=== PATIENT | female | born 1950 | race Caucasian/White ===

== ENCOUNTER 2022-06-22 13:07 | Emergency (ER) | payer MEDICARE, SELFPAY ==
--- NOTE | ~2022-06-22 | XR_ITS ---
XR hand RT min 3V DATE: 06/22/2022 13:33 INDICATION: Injury, medial pain TECHNIQUE: 3 views COMPARISON: None FINDINGS: There is osteoarthritis at the triscaphe and to a lesser extent first carpometacarpal joint . No fracture or dislocation, periosteal reaction or bone destruction. IMPRESSION: No fracture or dislocation Reviewed, dictated and finalized at location A. MOBILE RACER IMPRESSION: No fracture or dislocation
[2022-06-22 13:16] VITALS: BP 141/73; PULSE 111; RESP 20; TEMP 37.2; O2SAT 97
--- NOTE | 2022-06-22 13:22 | ED.UPPEXIN ---
HPI - Extremity Injury (Upper) General Chief Complaint: Extremity Injury, Upper Stated Complaint: Contusion to right hand Time Seen by Provider: 06/22/22 13:22 History of Present Illness HPI narrative: patient presents with right hand injury while blocking a blow from her mentally challenged child. no deformity no swelling slight bruising noted full rom. No other injuries reported. Related Data Home Medications Medication Instructions Recorded Confirmed calcium citrate 315 mg 1 tablet PO DAILY 05/12/19 03/20/22 calcium-vitamin D3 6.25 mcg (250 unit) tablet coenzyme Q10 30 mg capsule (CoQ-10) 30 mg PO DAILY 05/12/19 03/20/22 krill oil 500 mg capsule See Rx Instructions .Route .COMPLEX 05/12/19 03/20/22 choline 250 mg tablet 250 mg PO .QD 08/02/19 03/20/22 magnesium 250 mg tablet 250 mg PO DAILY 08/02/19 03/20/22 turmeric root extract 538 mg 538 mg PO BID 08/02/19 03/20/22 capsule nystatin 100,000 unit/gram topical 1 applic topical BID 03/29/20 03/20/22 cream sitagliptin phosphate 100 mg mg 06/22/22 tablet (Januvia) Allergies Allergy/AdvReac Type Severity Reaction Status Date / Time Sulfa (Sulfonamide Allergy Unknown Unknown Verified 03/20/22 15:02 Antibiotics) SODIUM PENTATHOL Allergy Unknown THROAT Uncoded 03/20/22 15:02 SWELLING Review of Systems Review of Systems: CONSTITUTIONAL: Denies fever, chills, or sweats. EYES: Denies visual changes, redness, or discharge. ENT: Denies rhinorrhea, congestion, sore throat, or otalgia. CARDIOVASCULAR: Denies chest pain, palpitations, or edema. RESPIRATORY: Denies cough or dyspnea. GASTROINTESTINAL: Denies abdominal pain, nausea, vomiting, or diarrhea. GENITOURINARY: Denies dysuria or hematuria. SKIN: Denies rash or itching. MUSCULOSKELETAL: Denies back pain, joint pain, or myalgia. NEUROLOGIC: Denies headache, numbness, or weakness. PSYCHIATRIC: Denies anxiety or depression. [facility] Past Medical History Medical History Anterior basement membrane dystrophy both eyes Degenerative arthritis of knee right knee Depression Diabetes Hypercholesterolemia Hyperlipidemia Hypertension Mitral valve insufficiency Severe carpal tunnel syndrome of both wrists Surgical History Surgical History Hx of arthroscopy of right knee 05/08/2016 Family History Family History Father Hypertension Family history of cardiovascular disease Family history of coronary artery disease Sibling Hypertension Family history of cardiovascular disease Family history of malignant neoplasm of testis Family history of malignant neoplasm of ovary Mother Family history of tremor Other Diabetes mellitus Family history of arthritis Family history of malignant neoplasm Social History Social History (Updated 03/20/22 @ 15:04 by Lori Calabrese [facility]) Smoking status: Never smoker Second hand tobacco smoke exposure: No Alcohol intake: never Substance use: never Substance use type: does not use Lack of Transportation: No Lack of Food: Never True Current Housing: I Have Housing Concerned About Future Housing: No Difficulty Paying Gas/Electric Bills: No Difficulty Paying for Meds: No Currently Unemployed: No Education: Master's Degree or Higher Difficulty w/ Childcare or Family Care: YES Living arrangements: with family Occupation/Education: retired Gender identity (if verbalized by the patient): Female Spiritual care concerns: No Agree to blood products: Yes Comments At time of signature, agree with nursing past medical, surgical, social and family history. There is no relevant family history pertinent to the presenting complaint Exam Narrative: GENERAL: Well-appearing, well-nourished, and in no acute distress. HEAD: Normocephalic, atrauma
== END 2022-06-22 14:00 | disposition home or self-care (01) ==
PROVIDERS: Emergency Provider Nurse Practitioner Family; PCP Family Medicine
DX: S60.221A Contusion of right hand, initial encounter (principal); Y04.2XXA Assault by strike against or bumped into by another person, initial encounter; H18.523 Epithelial (juvenile) corneal dystrophy, bilateral; M17.11 Unilateral primary osteoarthritis, right knee; E11.9 Type 2 diabetes mellitus without complications; E78.00 Pure hypercholesterolemia, unspecified; E78.5 Hyperlipidemia, unspecified; I10 Essential (primary) hypertension; I34.0 Nonrheumatic mitral (valve) insufficiency
CPT/HCPCS: 73130; 99213; G0463

== ENCOUNTER 2022-10-21 17:21 | Emergency (ER) | payer MEDICARE, SELFPAY ==
[2022-10-21 17:28] VITALS: BP 162/57; PULSE 95; RESP 20; TEMP 37.1; O2SAT 96
--- NOTE | 2022-10-21 17:51 | ED.FEMALEGU ---
HPI - Female Genitourinary General Chief complaint: Urogenital-Female Stated complaint: Urinary Problem History of Present Illness HPI Narrative: patient presents with burning with urination , urinary urgency, no gross hematuria no flank pain and no suprapubic pain Related Data Home Medications Medication Instructions Recorded Confirmed calcium citrate 315 mg 1 tablet PO DAILY 05/12/19 10/21/22 calcium-vitamin D3 6.25 mcg (250 unit) tablet choline 250 mg tablet 250 mg PO .QD 08/02/19 10/21/22 turmeric root extract 538 mg 538 mg PO BID 08/02/19 10/21/22 capsule sitagliptin phosphate 100 mg 100 mg PO DAILY 07/24/22 10/21/22 tablet (Januvia) irbesartan 300 mg tablet 300 mg PO DAILY 10/21/22 10/21/22 Allergies Allergy/AdvReac Type Severity Reaction Status Date / Time Sulfa (Sulfonamide Allergy Unknown Unknown Verified 10/21/22 17:28 Antibiotics) SODIUM PENTATHOL Allergy Unknown THROAT Uncoded 10/21/22 17:28 SWELLING Review of Systems Review of Systems: CONSTITUTIONAL: Denies fever, chills, or sweats. EYES: Denies visual changes, redness, or discharge. ENT: Denies rhinorrhea, congestion, sore throat, or otalgia. CARDIOVASCULAR: Denies chest pain, palpitations, or edema. RESPIRATORY: Denies cough or dyspnea. GASTROINTESTINAL: Denies abdominal pain, nausea, vomiting, or diarrhea. GENITOURINARY: Denies dysuria or hematuria. SKIN: Denies rash or itching. MUSCULOSKELETAL: Denies back pain, joint pain, or myalgia. NEUROLOGIC: Denies headache, numbness, or weakness. PSYCHIATRIC: Denies anxiety or depression. [facility] Past Medical History Medical History Anterior basement membrane dystrophy both eyes Degenerative arthritis of knee right knee Depression Diabetes Hypercholesterolemia Hyperlipidemia Hypertension Mitral valve insufficiency Severe carpal tunnel syndrome of both wrists Surgical History Surgical History Hx of arthroscopy of right knee 05/08/2016 Family History Family History Father Hypertension Family history of cardiovascular disease Family history of coronary artery disease Sibling Hypertension Family history of cardiovascular disease Family history of malignant neoplasm of testis Family history of malignant neoplasm of ovary Mother Family history of tremor Other Diabetes mellitus Family history of arthritis Family history of malignant neoplasm Social History Social History Smoking status: Never smoker Second hand tobacco smoke exposure: No Alcohol intake: never Substance use: never Substance use type: does not use Lack of Transportation: No Lack of Food: Never True Current Housing: I Have Housing Concerned About Future Housing: No Difficulty Paying Gas/Electric Bills: No Difficulty Paying for Meds: No Currently Unemployed: No Education: Master's Degree or Higher Difficulty w/ Childcare or Family Care: YES Living arrangements: with family Occupation/Education: retired Gender identity (if verbalized by the patient): Female Spiritual care concerns: No Agree to blood products: Yes Comments At time of signature, agree with nursing past medical, surgical, social and family history. There is no relevant family history pertinent to the presenting complaint Exam Narrative: GENERAL: Well-appearing, well-nourished, and in no acute distress. HEAD: Normocephalic, atraumatic. EYES: PERRLA and EOMI. ENT: Nares clear, no rhinorrhea or epistaxis. Mucous membranes moist. NECK: Supple. CHEST: Clear to auscultation. No respiratory distress. HEART: Regular rate and rhythm. No murmur heard. Normal peripheral pulses. ABDOMEN: Soft, nontender, nondistended, normal active bowel sounds. No flank pain EXTREMIT
== END 2022-10-21 17:59 | disposition home or self-care (01) ==
PROVIDERS: Emergency Provider Nurse Practitioner Family; PCP Family Medicine
DX: N39.0 Urinary tract infection, site not specified (principal); B96.20 Unspecified Escherichia coli [E. coli] as the cause of diseases classified elsewhere; E11.9 Type 2 diabetes mellitus without complications; E78.00 Pure hypercholesterolemia, unspecified; E78.5 Hyperlipidemia, unspecified; I10 Essential (primary) hypertension; I34.0 Nonrheumatic mitral (valve) insufficiency; M17.11 Unilateral primary osteoarthritis, right knee; H18.593 Other hereditary corneal dystrophies, bilateral
CPT/HCPCS: 81003; 87077; 87086; 87186; 99213; G0463

== ENCOUNTER 2023-03-04 08:38 | Outpatient (CLI) | payer MEDICARE, SELFPAY ==
--- NOTE | ~2023-03-04 | XR_ITS ---
EXAMINATION: XR lumbar spine min 4V DATE: 03/04/2023 09:26 INDICATION: Low back pain after fall TECHNIQUE: Anteroposterior, lateral, and bilateral oblique views of the lumbar spine, and cone-down l ateral view of the lumbosacral junction were obtained. COMPARISON: None. FINDINGS: There are 2 mm of anterolisthesis of L4 on L5. The vertebral body heights are maintained. T here is moderate loss of intervertebral disc space height from L2-3 through L5-S1. Small degenerative osteophytes project from the anterior endplates of multiple vertebral bodies. There is moderate face t joint osteoarthritis of the mid and lower lumbar spine. No fracture is identified. There are 10 deg gayle of lumbar levocurvature. IMPRESSION: 1. Moderate lumbar spondylosis without acute findings. Reviewed, dictated and finalized at location L. UNICATION ANALYST
--- NOTE | ~2023-03-04 | XR_ITS ---
AP and lateral views of the right hip Clinical history: Pain Findings: No acute fracture or dislocation is seen. Osseous alignment is anatomic. Right hip joint is preserved. Soft tissues are unremarkable. Impression: No significant abnormality is seen. Reviewed, dictated and finalized at location M. F RADIOLOGIST Impression: No significant abnormality is seen.
--- NOTE | ~2023-03-04 | XR_ITS ---
AP and lateral views of the left hip Clinical history: Pain Findings: No acute fracture or dislocation is seen. Osseous alignment is anatomic. Left hip joint is unremarkable. Soft tissues are unremarkable. Impression: No significant abnormality is seen. Reviewed, dictated and finalized at location M. GRAPHICAL DRAFTER Impression: No significant abnormality is seen.
--- NOTE | ~2023-03-04 | XR_ITS ---
EXAMINATION: XR sacroiliac joints min 3V INDICATION: Low back pain TECHNIQUE: Three views of the sacroiliac joints are obtained. COMPARISON: None available FINDINGS: Bone alignment is normal. There is no fracture. No abnormal erosion or sclerosis of the sac roiliac joints. There is mild osteitis pubis. IMPRESSION: 1. No acute osseous abnormality. Reviewed, dictated and finalized at location L. OGRAMMETRIC COMPILATION SPECIALIST
== END 2023-03-04 08:39 | disposition home or self-care (01) ==
LOC: ANHBWCLAB 08:41 → ANHBWCIMG 08:47
PROVIDERS: PCP Family Medicine; Visit Provider Family Medicine
DX: M43.06 Spondylolysis, lumbar region (principal); M46.1 Sacroiliitis, not elsewhere classified; W19.XXXA Unspecified fall, initial encounter
CPT/HCPCS: 72110; 72202; 73502

== ENCOUNTER 2023-05-22 14:30 | Outpatient (RCR) | payer MEDICARE, SELFPAY ==
--- NOTE | 2023-03-12 15:34 | OPREHPOC ---
Outpatient Therapy Plan of Care This is a Multidisciplinary Plan of Care that may contain components documented by all disciplines (PT, OT, and ST.) PT Problem 1 PT Problem #1 Knowledge Deficit PT Goal 1 Goal 1. Patient will perform independent HEP 2. Patient will verbalize urge suppression strategies. Target Visit 9 PT Problem 2 PT Problem #2 Impaired Strength PT Goal 1 Goal 1. Patient will demo pelvic floor strength 4/5 to decrease incontinence 2. Patient will demo pelvic floor endurance 10 seconds to decrease incontinence Target Visit 9 PT Problem 3 PT Problem #3 Impaired Functional ADLs PT Goal 1 Goal 1. Patient will report no more than 2 instances of incontinence per week and able to do all activities to care for her son 2. Patient will be able to hold urge to void at least 30 minutes to allow her to perform daily tasks Target Visit 9
--- NOTE | 2023-03-12 15:34 | PTOPEVAL1 ---
Assessment and note entered by Jerilyn Irizarry DPT Evaluation Information Assessment Status Evaluation Subjective Information Pt reports a history of urinary incontinence and previous lumbar issues. Reports more recent increased issues with pain and incontinence. She has a son with a physical disability that she cares for and helping him transfer increase her incontinence. Urinates more than 10 times a day and gets up 2-3 times a night. Reports incontinence throughout the day, sometimes small amounts and sometimes more. Denies pain with urination. Can hold urge maybe a minute. BM 3-4 times a day, no incontinence and no pain. Previously no pelvic pain except for due to adhesions that were addressed surgically. Pt has been 5 times, 2 vaginal deliveries. Tearing with her first, otherwise no complications . Total hysterectomy at age 50 due to fibroids. Sometimes has to change clothes and will use pads, will bring extra clothes, pads, wipes, etc when going out in the community. Pt reports she has to continue doing daily activities, going to appointments and do other things to care for her son but builds in extra time if she ever needs to change clothes or get cleaned up. Patient goal: decrease or get rid of the incontinence Reported Pain Level Pain Score 0: Self Report Assessment PT Clinical Summary The patient is presenting to skilled therapy with a history of worsening urinary incontinence and pelvic organ prolapse. She presents with decreased pelvic floor strength and endurance, as well as overall decreased core and LE strength, which are contributing to her frequent incontinence and difficulty performing normal activities including caring for her adult son. She will highly benefit from therapy to address her impairments in order to reduce incontinence and pad use and improve overall function. Plan of Care Interventions Manual Therapy,Neuro Re-education,Patient/ Caregiver Education,Therapeutic Activities, Therapeutic Exercise PT Services Indicated Yes Treatment Frequency and 1 time a week for 8 visits Duration These treatments will address the objective and functional deficits as defined above. The patient will be advanced safely and appropriately in order for th
--- NOTE | 2023-04-17 13:46 | OPREHPOC ---
Outpatient Therapy Plan of Care This is a Multidisciplinary Plan of Care that may contain components documented by all disciplines (PT, OT, and ST.) PT Problem 1 PT Problem #1 Knowledge Deficit PT Goal 1 Goal 1. Patient will perform independent HEP 2. Patient will verbalize urge suppression strategies. Target Visit 9 Progress Partially Met PT Problem 2 PT Problem #2 Impaired Strength PT Goal 1 Goal 1. Patient will demo pelvic floor strength 4/5 to decrease incontinence 2. Patient will demo pelvic floor endurance 10 seconds to decrease incontinence Target Visit 9 Progress Partially Met Comment 1. improved to 3/5 2. met PT Problem 3 PT Problem #3 Impaired Functional ADLs PT Goal 1 Goal 1. Patient will report no more than 2 instances of incontinence per week and able to do all activities to care for her son 2. Patient will be able to hold urge to void at least 30 minutes to allow her to perform daily tasks Target Visit 9 Progress Partially Met
--- NOTE | 2023-04-17 13:46 | PTOPPROG ---
Assessment and note entered by Jerilyn Irizarry DPT Evaluation Information Assessment Status Progress Subjective Information Pt reports some success over the last week, had 3 times where she got up to void in the middle of the night and was able to control bladder until she got to the bathroom. States she is still getting incontinence multiple times a day but smaller amounts at a time. Is wearing pads at all times but had a night recently where she only had to use 1 all night. Assessment PT Clinical Summary The patient has made excellent progress in therapy and reports decreased volume of incontinence and urgency. She demonstrates improved LE, core, and pelvic floor strength and endurance and will highly benefit from continued therapy to further address her daily incontinence and pad use. Plan of Care Interventions Manual Therapy,Neuro Re-education,Patient/ Caregiver Education,Therapeutic Activities, Therapeutic Exercise PT Services Indicated Yes Treatment Frequency and 1 time a week for 5 visits Duration These treatments will address the objective and functional deficits as defined above. The patient will be advanced safely and appropriately in order for the patient to progress towards his/her prior level of function. Additional exercises will be introduced and as well as a comprehensive home exercise program upon discharge, if needed, ?to ensure carryover of functional gains achieved in the clinic. This treatment plan has been reviewed and agreement upon by the patient.
--- NOTE | 2023-05-22 15:03 | PTOPPROG ---
Assessment and note entered by Jerilyn Irizarry DPT Evaluation Information Assessment Status Progress Subjective Information Pt reports she has had more improvements with being able to walk to the bathroom and do kegels on the way to prevent leakage. Incontinence occurs daily but smaller amount of urine at a time. Is able to correlate increased incontinence with drinking tea. Least amount of pads per day is 3, has not leaked through to clothes recently. Assessment PT Clinical Summary The patient has continued to make good progress in therapy. She reports daily incontinence but the volume has significantly decreased and she no longer leaks through her clothes. She continues to require pads daily, 3 at a minimum. She demonstrates improved hip and pelvic floor strength. She will continue to benefit from therapy to further address strength and incontinence in order to return to full function. Plan of Care Interventions Manual Therapy,Neuro Re-education,Patient/ Caregiver Education,Therapeutic Activities, Therapeutic Exercise PT Services Indicated Yes Treatment Frequency and 1 visit every other week x 4 visits Duration These treatments will address the objective and functional deficits as defined above. The patient will be advanced safely and appropriately in order for the patient to progress towards his/her prior level of function. Additional exercises will be introduced and as well as a comprehensive home exercise program upon discharge, if needed, ?to ensure carryover of functional gains achieved in the clinic. This treatment plan has been reviewed and agreement upon by the patient.
--- NOTE | 2023-05-22 15:04 | OPREHPOC ---
Outpatient Therapy Plan of Care This is a Multidisciplinary Plan of Care that may contain components documented by all disciplines (PT, OT, and ST.) PT Problem 1 PT Problem #1 Knowledge Deficit PT Goal 1 Goal 1. Patient will perform independent HEP 2. Patient will verbalize urge suppression strategies. Target Visit 13 Progress Partially Met PT Problem 2 PT Problem #2 Impaired Strength PT Goal 1 Goal 1. Patient will demo pelvic floor strength 4/5 to decrease incontinence 2. Patient will demo pelvic floor endurance 10 seconds to decrease incontinence Target Visit 9 Progress Met PT Problem 3 PT Problem #3 Impaired Functional ADLs PT Goal 1 Goal 1. Patient will report no more than 2 instances of incontinence per week and able to do all activities to care for her son 2. Patient will be able to hold urge to void at least 30 minutes to allow her to perform daily tasks Target Visit 13 Progress Partially Met
--- NOTE | 2023-05-27 14:05 | PCPTNOTE ---
This treatment is being continued on visit number [id number]. Please see documentation on both accounts to view progress. Completed interventions, outcomes, and problems have been marked as Inactive to facilitate the copying of the Care plan routine for recurring accounts.
== END 2023-05-26 10:25 | disposition home or self-care (01) ==
LOC: ANHPT 14:30
PROVIDERS: PCP Family Medicine; Visit Provider Family Medicine
DX: R32 Unspecified urinary incontinence (principal); N81.89 Other female genital prolapse
CPT/HCPCS: 97112; 97161; 97530

== ENCOUNTER 2023-07-17 13:00 | Outpatient (RCR) | payer MEDICARE, SELFPAY ==
--- NOTE | 2023-05-27 14:07 | PCPTNOTE ---
The treatment documented on this account is a continuation of the treatment documented on visit number [id number]. Please see documentation on both accounts to view progress. The Plan of Care has been transitioned and updated within the new V#. I have addressed and agree with the discipline specific Problems, Interventions, and Goals for the current certification period. Completed interventions, outcomes, and problems have been marked as Inactive to facilitate the copying of the Care plan routine for recurring accounts.
--- NOTE | 2023-05-27 14:08 | OPREHPOC ---
Outpatient Therapy Plan of Care This is a Multidisciplinary Plan of Care that may contain components documented by all disciplines (PT, OT, and ST.) PT Problem 1 PT Problem #1 Knowledge Deficit PT Goal 1 Goal 1. Patient will perform independent HEP 2. Patient will verbalize urge suppression strategies. Target Visit 13 Progress Partially Met PT Problem 2 PT Problem #2 Impaired Strength PT Goal 1 Goal 1. Patient will demo pelvic floor strength 4/5 to decrease incontinence 2. Patient will demo pelvic floor endurance 10 seconds to decrease incontinence Target Visit 9 Progress Met Comment 1. improved to 3/5 2. met PT Problem 3 PT Problem #3 Impaired Functional ADLs PT Goal 1 Goal 1. Patient will report no more than 2 instances of incontinence per week and able to do all activities to care for her son 2. Patient will be able to hold urge to void at least 30 minutes to allow her to perform daily tasks Target Visit 13 Progress Partially Met
--- NOTE | 2023-07-17 13:56 | OPREHPOC ---
Outpatient Therapy Plan of Care This is a Multidisciplinary Plan of Care that may contain components documented by all disciplines (PT, OT, and ST.) PT Problem 1 PT Problem #1 Knowledge Deficit PT Goal 1 Goal 1. Patient will perform independent HEP 2. Patient will verbalize urge suppression strategies. Target Visit 13 Progress Met PT Problem 2 PT Problem #2 Impaired Strength PT Goal 1 Goal 1. Patient will demo pelvic floor strength 4/5 to decrease incontinence 2. Patient will demo pelvic floor endurance 10 seconds to decrease incontinence Target Visit 9 Progress Met PT Problem 3 PT Problem #3 Impaired Functional ADLs PT Goal 1 Goal 1. Patient will report no more than 2 instances of incontinence per week and able to do all activities to care for her son 2. Patient will be able to hold urge to void at least 30 minutes to allow her to perform daily tasks Target Visit 13 Progress Partially Met
--- NOTE | 2023-07-17 13:57 | PTOPDC ---
Assessment and note entered by Jerilyn Irizarry DPT Evaluation Information Assessment Status Discharge Subjective Information Pt reports two weeks ago incontinence was better than over the last week. The last week her back has been bothering her more and it has been more stressful caring for her son. Daily incontinence still and is multiple times a day. Was able to go down a size of pads temporarily but may go back up this week as it is seeming worse. Still reports that she has days without surges of urine so she is able to get out in the community and grocery shop more. Reported Pain Level Pain Score 0: Self Report Assessment PT Clinical Summary The patient has reached a plateau in progress at this time. Overall she reports decreased volume of incontinence, but displays no objective pelvic floor improvement compared to the last reassessment. She has been educated to continue her HEP and to follow up with MD and/or PT as needed. Plan of Care PT Services Indicated No
== END 2023-07-17 14:36 | disposition home or self-care (01) ==
LOC: ANHPT 13:00
PROVIDERS: PCP Family Medicine; Visit Provider Family Medicine
DX: R32 Unspecified urinary incontinence (principal); N81.89 Other female genital prolapse
CPT/HCPCS: 97112; 97530; 99199

== ENCOUNTER 2023-11-17 13:08 | Outpatient (CLI) | payer MEDICARE, SELFPAY ==
[2023-11-17 14:14] LABS: Influenza A QL RT-PCR Negative (Negative); Influenza B QL RT-PCR Negative (Negative); RSV RNA, RT-PCR Negative (Negative); SARS-CoV-2 RNA PCR Positive (Negative)
== END 2023-11-17 13:09 | disposition home or self-care (01) ==
LOC: ANHLAB 13:09
PROVIDERS: PCP Family Medicine; Visit Provider Family Medicine
DX: J06.9 Acute upper respiratory infection, unspecified (principal); Z20.822 Contact with and (suspected) exposure to COVID-19
CPT/HCPCS: 87637

== ENCOUNTER 2024-01-02 12:46 | Outpatient (CLI) | payer MEDICARE, SELFPAY ==
--- NOTE | ~2024-01-02 | MM_ITS ---
EXAMINATION: MM screening robert BI w kemal HISTORY: Screening TECHNIQUE: Craniocaudal and mediolateral oblique 3-D tomosynthesis images were obtained and synthetic 2-D images were generated. CAD analysis was submitted and interpreted. COMPARISON: Comparison to multiple prior studies sequentially, with oldest reviewed study dated 11/2014. BREAST PARENCHYMAL COMPOSITION: Not dense: There are scattered areas of fibroglandular density. FINDINGS: There is no evidence of suspicious mass, calcification, or architectural distortion to sugg est malignancy in either breast. There has been no suspicious interval change. IMPRESSION: 1. No mammographic evidence of malignancy. 2. Recommend routine screening mammography in one year. BI-RADS Category 1: Negative Reviewed, dictated and finalized at location B.
--- NOTE | ~2024-01-02 | DEXA_ITS ---
Bone Density Report Name: CHRISSY LEUNG Age: 73 Sex: Female Ethnicity: White Date of : 1950 Indication: postmenopausal; screening for osteoporosis; parental hip fracture; hysterectomy; Referring Provider: Lina Carlisle Study: Bone densitometry was performed. Exam Date: January 02, 2024 Accession number: [id number] Bone Density: Region BMD T-score Z-score Classification AP Spine(L1, L2, L3) 1.028 0.1 2.3 Normal Femoral Neck (Left) 0.600 -2.2 -0.3 Osteopenia Total Hip (Left) 0.878 -0.5 1.2 Normal Femoral Neck (Right) 0.584 -2.4 -0.4 Osteopenia Total Hip (Right) 0.802 -1.1 0.5 Osteopenia Femoral Neck Mean 0.592 -2.3 -0.3 Osteopenia Total Hip Mean 0.840 -0.8 0.8 Normal World Health Organization criteria for BMD impression classify patients as: Normal (T-score at or above -1.0), Osteopenia (T-score between -1.0 and -2.5), or Osteoporosis (T-score at or below -2.5). 10-year Fracture Risk(1): Major Osteoporotic Fracture 23% Hip Fracture 11% Reported Risk Factors: [place] (), Neck BMD=0.584, BMI=34.9, parental fracture (1) FRAX(R) Version 3.08. Fracture probability calculated for an untreated patient. Fracture probability may be lower if the patient has received treatment. Clinical Information Provided by Patient: Parent has had a hip fracture Has used the following medications: Vitamin D, Calcium Has the following medical conditions: Hysterectomy Patient maximum height was 61 Menopause Age: 50 No regular weight bearing exercise Onset of menses at age 13 Number of children 2 Impression: The patient has low bone mass, based on the Right Femoral Neck T-score. The patient has risk factors, including: parental hip fracture. Discussion: BONE DENSITY IS LOW AT ONE OR MORE SKELETAL SITES. This patient's lowest T-score is low at one or more skeletal sites. It meets the World Health Organization's (WHO) criteria for ?low bone mass? (T-score between -1.0 and -2.5). The patient's 10-year risk of fracture as calculated by FRAX is less than the threshold where pharmacological therapy is recommended by the National Osteoporosis Foundation (NOF). However, all treatment decisions require clinical judgment and consideration of individual patient factors, including patient preferences, comorbidities, previous drug use, risk factors not captured in the FRAX model (e.g., frailty, falls, vitamin D deficiency, increased bone turnover, interval significant decline in bone density) and possible under or overestimation of fracture risk by FRAX. The patient should follow a healthful lifestyle (good nutrition with adequate calcium and vitamin D, and appropriate weight-bearing exercise). Follow-Up: Consider repeating this study in 2 to 3 years to reassess this patient's status
== END 2024-01-02 12:47 | disposition home or self-care (01) ==
LOC: CHSIMG 12:49
PROVIDERS: PCP Family Medicine; Visit Provider Family Medicine
DX: Z78.0 Asymptomatic menopausal state (principal); Z12.31 Encounter for screening mammogram for malignant neoplasm of breast; M85.89 Other specified disorders of bone density and structure, multiple sites
CPT/HCPCS: 77063; 77067; 77080

== ENCOUNTER 2024-01-29 06:16 | Day surgery (SDC) | payer MEDICARE, SELFPAY ==
[2024-01-01 09:32] VITALS: BMI 36.5
[2024-01-19 11:34] VITALS: BMI 35.3
--- NOTE | 2024-01-28 16:10 | WPDANESEPPF ---
Anes - Initial Pre Proc Eval Procedure: Operation Date: 01/29/24 08:00 Proposed Procedures p Diagnostic Colonoscopy - Swapnil Ace MD Date/Time: 01/28/24 16:10 Surgeon: Swapnil Ace MD Pre Op Diagnosis: Personal HX of Colonic Polyps Patient Data Age: 73 Gender: F Height: 1.52 m Weight: 82 kg Allergies Allergy/AdvReac Type Severity Reaction Status Date / Time Sulfa (Sulfonamide Allergy Unknown Swelling Verified 01/29/24 06:47 Antibiotics) of Lip/Tongue/Throat SODIUM [place] Allergy Unknown THROAT Uncoded 01/29/24 06:47 SWELLING Home Medications Medication Instructions Recorded Confirmed Type calcium 315 mg (as 1 tablet PO DAILY 05/12/19 01/29/24 History citrate)-vitamin D3 6.25 mcg (250 unit) tablet turmeric root extract 538 mg 538 mg PO BID 08/02/19 01/19/24 History capsule dapagliflozin propanediol 10 mg 10 mg PO DAILY #90 tabs 01/21/22 01/29/24 Rx tablet (Farxiga) bupropion HCl 150 mg tablet,12 hr 300 mg PO DAILY #180 tabs 12/19/22 01/29/24 Rx sustained-release cholestyramine-aspartame 4 gram See Rx Instructions .Route 02/17/23 01/29/24 Rx oral powder for susp in a packet .COMPLEX #90 ea (Cholestyramine Light) pen needle, diabetic 32 gauge x #100 ea 04/07/23 01/08/24 Rx 5/32 (BD Ofe 2nd Gen Pen Needle) glimepiride 4 mg tablet 4 mg PO BID #180 tabs 08/03/23 01/29/24 Rx buspirone 10 mg tablet 10 mg PO TID #270 tabs 09/01/23 01/29/24 Rx simvastatin 20 mg tablet 20 mg PO DAILY #90 tabs 12/03/23 01/29/24 Rx Ultra CoQ10 1 tab-cap PO DAILY 01/19/24 01/19/24 History duloxetine 30 mg capsule,delayed 60 mg PO DAILY 01/19/24 01/29/24 History release insulin glargine 100 unit/mL (3 45 unit subcut QPM 01/19/24 01/29/24 History mL) subcutaneous pen (Lantus Solostar U-100 Insulin) irbesartan 300 mg tablet 150 mg PO DAILY #90 tabs 01/20/24 01/29/24 Rx semaglutide 0.25 mg or 0.5 mg (2 0.25 mg (0.368 mL) subcut WEEKLY 01/28/24 01/29/24 Rx mg/3 mL) subcutaneous pen injector #3 mL (Ozempic) Patient hx anesthesia problems: none Family hx anesthesia problems: none Results Review: All pre-operative results and documents have been reviewed as part of the pre-operative evaluation. [facility] Past Medical History Medical History (Updated 01/29/24 @ 07:07 by Swapnil Ace MD) Ankylosing spondylitis Anterior basement membrane dystrophy both eyes Degenerative arthritis of knee right knee Depression Diabetes Hypercholesterolemia Hyperlipidemia Hyperlipidemia associated with type 2 diabetes mellitus Hypertension Mitral valve insufficiency Severe carpal tunnel syndrome of both wrists Skin cancer Surgical History Surgical History (Updated 01/08/24 @ 10:07 by Ki Jesus MD) Hx of arthroscopy of right knee 05/08/2016 Family History Family History Father Hypertension Family history of cardiovascular disease Family history of coronary artery disease Sibling Hypertension Family history of cardiovascular disease Family history of malignant neoplasm of testis Family history of malignant neoplasm of ovary Mother Family history of tremor Other Diabetes mellitus Family history of arthritis Family history of malignant neoplasm Social History Social History (Updated 01/08/24 @ 09:49 by LOPEZ Aguilar) Smoking status: Never smoker Second hand tobacco smoke exposure: No Alcohol intake: never Substance use: never Substance use type: does not use Do You Feel Safe in your Home?: Yes Lack of Transportation: No Lack of Food: Never True Current Housing: I Have Housing Concerned About Future Housing: No Difficulty Paying Gas/Electric Bills: No Difficulty Paying for Meds: No Currently Unemployed: No Education: Master's Degree or Higher Difficulty w/ Childcare or Family Care: YES Living arrangements: with family Occupation/Education:
[2024-01-29 06:55] VITALS: BP 152/69; PULSE 71; RESP 18; TEMP 29.8; O2SAT 100; BMI 36.8
--- NOTE | 2024-01-29 07:05 | PM.HPGS ---
History of Present Illness History of Present Illness Consent: Risks, benefits, and alternatives have been discussed and questions answered. Patient agrees to proceed with procedure. Chief complaint: Personal HX of Colonic Polyps Narrative: Yamilex Wilkerson is a 73 year old female presents for colonoscopy. Patient states that her current weight appetite and bowel movements are normal. Patient denies abdominal pain. She has had no bleeding. Family history noncontributory. Patient had a colonoscopy 5 years ago. At that time hyperplastic colon polyp was removed from the colon. Review of Systems Review of Systems: All systems reviewed & are unremarkable except as noted in HPI and below PMFSH Past Medical History Medical History (Updated 01/29/24 @ 07:07 by Swapnil Ace MD) Ankylosing spondylitis Anterior basement membrane dystrophy both eyes Degenerative arthritis of knee right knee Depression Diabetes Hypercholesterolemia Hyperlipidemia Hyperlipidemia associated with type 2 diabetes mellitus Hypertension Mitral valve insufficiency Severe carpal tunnel syndrome of both wrists Skin cancer Surgical History Surgical History (Updated 01/08/24 @ 10:07 by Ki Jesus MD) Hx of arthroscopy of right knee 05/08/2016 Family History Family History Father Hypertension Family history of cardiovascular disease Family history of coronary artery disease Sibling Hypertension Family history of cardiovascular disease Family history of malignant neoplasm of testis Family history of malignant neoplasm of ovary Mother Family history of tremor Other Diabetes mellitus Family history of arthritis Family history of malignant neoplasm Social History Social History (Updated 01/08/24 @ 09:49 by LOPEZ Aguilar) Smoking status: Never smoker Second hand tobacco smoke exposure: No Alcohol intake: never Substance use: never Substance use type: does not use Do You Feel Safe in your Home?: Yes Lack of Transportation: No Lack of Food: Never True Current Housing: I Have Housing Concerned About Future Housing: No Difficulty Paying Gas/Electric Bills: No Difficulty Paying for Meds: No Currently Unemployed: No Education: Master's Degree or Higher Difficulty w/ Childcare or Family Care: YES Living arrangements: with family Occupation/Education: retired Additional occupation/education comments: Special [employer] Gender identity (if verbalized by the patient): Female Spiritual care concerns: No Agree to blood products: Yes Meds Home Medications and Allergies Home Medications Medication Instructions Recorded Confirmed Type calcium 315 mg (as 1 tablet PO DAILY 05/12/19 01/29/24 History citrate)-vitamin D3 6.25 mcg (250 unit) tablet turmeric root extract 538 mg 538 mg PO BID 08/02/19 01/19/24 History capsule dapagliflozin propanediol 10 mg 10 mg PO DAILY #90 tabs 01/21/22 01/29/24 Rx tablet (Farxiga) bupropion HCl 150 mg tablet,12 hr 300 mg PO DAILY #180 tabs 12/19/22 01/29/24 Rx sustained-release cholestyramine-aspartame 4 gram See Rx Instructions .Route 02/17/23 01/29/24 Rx oral powder for susp in a packet .COMPLEX #90 ea (Cholestyramine Light) pen needle, diabetic 32 gauge x #100 ea 04/07/23 01/08/24 Rx (BD Ofe 2nd Gen Pen Needle) glimepiride 4 mg tablet 4 mg PO BID #180 tabs 08/03/23 01/29/24 Rx buspirone 10 mg tablet 10 mg PO TID #270 tabs 09/01/23 01/29/24 Rx simvastatin 20 mg tablet 20 mg PO DAILY #90 tabs 12/03/23 01/29/24 Rx Ultra CoQ10 1 tab-cap PO DAILY 01/19/24 01/19/24 History duloxetine 30 mg capsule,delayed 60 mg PO DAILY 01/19/24 01/29/24 History release insulin glargine 100 unit/mL (3 45 unit subcut QPM 01/19/24 01/29/24 History mL) subcutaneous pen (Lantus Solostar U-100 Insulin) irbesartan 300 mg tablet 150 mg PO DAILY #90 tabs
[2024-01-29 07:17] LABS: Glucose Point of Care 66 mg/dl (65-105)
[2024-01-29] MEDS: LACTATED RINGERS 1,000 ML 150 ML IV CONT (07:22)
--- NOTE | 2024-01-29 07:22 | SUR.PREOP ---
PT BLOOD SUGAR IS 66. PT ASYMPTOMATIC. DR MALDONADO NOTIFIED. IF PT BECOMES SYMPTOMATIC, MAY GIVEN 1/2 AMP D50. PT INSTRUCTED TO LET NURSE KNOW IF SHE DOESN'T FEEL WELL. PT VERBALIZED UNDERSTANDING.
[2024-01-29 08:16] VITALS: BP 108/62; PULSE 67; RESP 18; O2SAT 99
[2024-01-29 08:26] VITALS: BP 105/85; PULSE 96; RESP 18; O2SAT 99
[2024-01-29 08:36] VITALS: BP 136/59; PULSE 62; RESP 18; O2SAT 100
[2024-01-29] MEDS: DEXTROSE 50% 25 GM/50 ML SYRINGE IV PUSH (08:48)
[2024-01-29 08:50] LABS: Glucose Point of Care 54 mg/dl (65-105)
[2024-01-29 08:50] LABS: Glucose Point of Care 57 mg/dl (65-105)
--- NOTE | 2024-01-29 09:00 | SUR.PHASEII ---
Pts FSBS prior to procedure was 66. Pt was asymptomatic. Post procedure, once pt was awake, pt drank an apple juice. FSBS was 57. Pt was aymptomatic. Pt drank a second apple juice. FSBS was 54. Pt remained asymptomatic. Administered 1/2amp D50 IV push. FSBS 95. Pt remained asymptomatic. Dr. Posada made aware.
[2024-01-29 09:16] LABS: Glucose Point of Care 95 mg/dl (65-105)
--- NOTE | 2024-01-29 12:02 | WPDANESPN ---
Anes - Prog Note Post-Op Date/Time: 01/29/24 12:02 Cardiovascular status: normal Respiratory status: normal Airway patency: baseline Mental status: baseline Post-Op hydration status: normal Vital Signs: Last Vital Signs Temp 29.8 C L 01/29/24 06:55 Pulse 62 01/29/24 08:36 Resp 18 01/29/24 08:36 BP 136/59 L 01/29/24 08:36 Pulse Ox 100 01/29/24 08:36 O2 Del Method Room Air 01/29/24 08:36 Pain Score (VAS): 0 I/O: Intake & Output 01/28/24 01/29/24 01/29/24 23:59 07:59 15:59 Intake Total 500 Balance 500 01/29/24 01/29/24 01/29/24 07:12 08:32 08:44 POC Capillary Glucose 66 57 L* 54 L* 01/29/24 08:58 POC Capillary Glucose 95 Post-procedural complaints: none Patient Feedback: Patient satisfied with anesthetic care. Other Findings: Patient vital signs back to baseline. Patient denies nausea and vomiting. Patient's pain under control. Patient OK for discharge.
== END 2024-01-29 09:13 | disposition home or self-care (01) ==
PROVIDERS: PCP Family Medicine; Visit Provider Internal Medicine Gastroenterology
PROC: 0DJD8ZZ Inspection of Lower Intestinal Tract, Via Natural or Artificial Opening Endoscopic (ICD-10-PCS; CPT 45378; principal; 2024-01-29 08:00)
DX: Z12.11 Encounter for screening for malignant neoplasm of colon (principal); K57.30 Diverticulosis of large intestine without perforation or abscess without bleeding
CPT/HCPCS: 45378

== ENCOUNTER 2024-05-17 10:34 | Outpatient (CLI) | payer MEDICARE, SELFPAY ==
--- NOTE | ~2024-05-17 | MR_ITS ---
MRI of the lumbar spine Clinical History: Back pain Technique: Axial T2-weighted images, and sagittal T1-weighted, T2-weighted, and T2 fat-sat images wer e acquired. Findings: No acute fracture or subluxation identified. Intraosseous hemangioma at L3 noted. There are mild reactive marrow changes at the lower lumbar spine. At L1-L2, there is no disc bulge or herniation. There is moderate to advanced facet arthropathy. No c entral canal stenosis. There is minimal bilateral neural foraminal narrowing. At L2-L3, there is moderate to advanced degenerative disc narrowing. There is diffuse disc bulge with moderate facet arthropathy. There is mild to moderate central canal stenosis. There is moderate bila teral neural foraminal narrowing. At L3-L4, there is advanced degenerative disc narrowing. There is diffuse disc bulge and severe facet arthropathy and moderate to severe spinal canal stenosis/thecal sac compression. There is severe rig ht neural foraminal narrowing, and moderate to advanced left neural foraminal narrowing. At L4-L5, there is diffuse disc bulge and severe facet arthropathy, resulting in severe spinal canal stenosis/thecal sac compression. There is severe right neural foraminal narrowing, and mild to modera te left neural foraminal narrowing. At L5-S1, there is central disc extrusion superimposed upon diffuse disc bulge, with moderate facet a rthropathy. No britta central canal stenosis. There is moderate to advanced left neural foraminal narr owing, and mild right neural foraminal narrowing. Paravertebral soft tissues are unremarkable. Impression: Severe degenerative spondylitic changes, as above. Reviewed, dictated and finalized at [facility] M. ER PITMAN Impression: Severe degenerative spondylitic changes, as above.
== END 2024-05-17 10:35 | disposition home or self-care (01) ==
LOC: GOSHIMG 10:34
PROVIDERS: PCP Orthopaedic Surgery; Visit Provider Family Medicine
DX: M47.896 Other spondylosis, lumbar region (principal)
CPT/HCPCS: 72148

== ENCOUNTER 2025-03-23 12:52 | Outpatient (CLI) | payer MEDICARE, SELFPAY ==
--- NOTE | 2025-03-23 13:00 | NEURO_ITS ---
Impression: # Diabetic, complains of numbness of hands. ? # Bilateral Carpal Tunnel Syndrome. ? # Bilateral Ulnar Neuropathy around the elbow. ? # Needle/EMG exam mildly abnormal. Nerve Conduction Studies ?Stim Site NR Peak (ms) P-T Amp (?V) Site1 Site2 Delta-P (ms) Dist (cm) Piter (m/s) Left Median Anti Sensory (2-3nd Digit)??? NO RESPONSE Wrist NR Wrist 2-3nd Digit 14.0 Wrist NR Wrist 2-3nd Digit 14.0 Right Median Anti Sensory (2-3nd Digit) Wrist ? 6.3 11.0 Wrist 2-3nd Digit 6.3 14.0 22 Wrist ? 6.6 10.8 Wrist 2-3nd Digit 6.3 14.0 22 Left Radial Anti Sensory (Base 1st Digit) Wrist ? 1.8 21.6 Wrist Base 1st Digit 1.8 0.0 Right Radial Anti Sensory (Base 1st Digit) Wrist ? 2.1 20.2 Wrist Base 1st Digit 2.1 0.0 Left Ulnar Anti Sensory (5th Digit) Wrist ? 3.0 40.3 Wrist 5th Digit 3.0 14.0 47 Right Ulnar Anti Sensory (5th Digit) Wrist ? 3.0 40.0 Wrist 5th Digit 3.0 14.0 47 ?Stim Site NR Onset (ms) O-P Amp (mV) Site1 Site2 Delta-0 (ms) Dist (cm) Piter (m/s) Left Median Motor (Abd Poll Brev) Wrist ? 5.0 0.6 Elbow Wrist 4.4 25.0 57 Elbow ? 9.4 0.9 Right Median Motor (Abd Poll Brev) Wrist ? 5.5 1.7 Elbow Wrist 5.0 26.0 52 Elbow ? 10.5 1.6 Left Ulnar Motor (Abd Dig Minimi) Wrist ? 2.5 11.8 A Elbow Wrist 5.5 26.0 47 A Elbow ? 8.0 9.1 B Elbow Wrist 3.8 19.0 50 B Elbow ? 6.3 6.1 Right Ulnar Motor (Abd Dig Minimi) Wrist ? 2.0 8.7 A Elbow Wrist 5.7 26.0 46 A Elbow ? 7.7 6.8 B Elbow Wrist 4.1 18.0 44 B Elbow ? 6.1 4.7 F Wave Studies ?NR F-Lat (ms) L-R F-Lat (ms) Left Median (Mrkrs) (Abd Poll Brev) ? 35.17 1.37 Right Median (Mrkrs) (Abd Poll Brev) ? 33.80 1.37 Left Ulnar (Mrkrs) (Abd Dig Min) ? 27.89 0.55 Right Ulnar (Mrkrs) (Abd Dig Min) ? 28.44 0.55 Electromyography ?Side Muscle Nerve Root Ins Act Fibs Amp Dur Recrt Comment Left 1stDorInt Ulnar C8-T1 Nml Nml Nml >12ms +1 Right 1stDorInt Ulnar C8-T1 Nml Nml Nml >12ms +2 Left ABD Dig Min Ulnar C8-T1 Nml Nml Nml >12ms +1 Right ABD Dig Min Ulnar C8-T1 Nml Nml Nml >12ms +2 Left Abd Poll Brev Median C8-T1 Nml Nml Nml >12ms +2 Right Abd Poll Brev Median C8-T1 Nml Nml Nml >12ms +2 Left Abd Poll Long Radial (Post Int) C7-8 Nml Nml Nml Nml Nml Right Abd Poll Long Radial (Post Int) C7-8 Nml Nml Nml Nml Nml Left BrachioRad Radial C5-6 Nml Nml Nml Nml Nml Right BrachioRad Radial C5-6 Nml Nml Nml Nml Nml Left Ext Digitorum Radial (Post Int) C7-8 Nml Nml Nml Nml Nml Right Ext Digitorum Radial (Post Int) C7-8 Nml Nml Nml Nml Nml Left Ext Indicis Radial (Post Int) C7-8 Nml Nml Nml Nml Nml Right Ext Indicis Radial (Post Int) C7-8 Nml Nml Nml Nml Nml Left FlexPolLong Median (Ant Int) C7-8 Nml Nml Nml Nml Nml Right FlexPolLong Median (Ant Int) C7-8 Nml Nml Nml Nml Nml Left PronatorTeres Median C6-7 Nml Nml Nml Nml Nml Right PronatorTeres Median C6-7 Nml Nml Nml Nml Nml
--- OUTSIDE RECORDS SUMMARY | 2025-03-23 13:03 | XMS_ITS | Clinical Summary ---
Author Organization [facility] Address [facility] [place] [address] Care Team Providers Care Cement Finisher Helper Name Role Phone Ryan Kelly Primary Care Provider [phone] Allergies Active Allergy Reactions Criticality Noted Date Comments Thiopental Sodium Swelling Medium 09/06/2020 Sulfa (Sulfonamide Antibiotics) Hives Medium 08/26 Medications buPROPion SR (WELLBUTRIN SR) 150 mg 12 hr tablet Take 100 mg by mouth daily 1 Active dapagliflozin (Farxiga) 10 mg tablet Farxiga 10 mg tablet TK 1 T PO D Active glimepiride (AMARYL) 2 mg tablet glimepiride 2 mg tablet Active irbesartan (AVAPRO) 300 mg tablet irbesartan 300 mg tablet Active ketoconazole (NIZORAL) 2 % shampoo ketoconazole 2 % shampoo FRANK SHAMPOO AA QOD Active nystatin ointment nystatin 100,000 unit/gram topical ointment Active metFORMIN (GLUCOPHAGE) 500 mg tablet Take 500 mg by mouth 4 (four) times a day 1 Active simvastatin (ZOCOR) 10 mg tablet simvastatin 10 mg tablet Active SITagliptin (Januvia) 100 mg tablet Januvia 100 mg tablet Active Active Problems No known active problems Surgical History Surgery Date Site/Laterality Comments TONSILLECTOMY/ADENOIDECTOMY HYSTERECTOMY TUBAL LIGATION Medical History Medical History Date Comments High cholesterol Diabetes Depression Mitral valve disease Family History Medical History Relation Name Comments Testicular cancer Brother 2 Heart attack Brother 3 Hypertension Brother 3 Alzheimer's disease Father Heart failure Father Hypertension Father Hypotension Mother Macular degeneration Mother diabetes Mother No Known Problems Sister 1 No Known Problems Sister 2 Ovarian cancer Sister 3 No Known Problems Sister 5 No Known Problems Sister 6 Relation Name Status Comments Brother 1 Alive Brother 2 Alive Brother 3 Alive Father Mother Alive Sister 1 Alive Sister 2 Alive Sister 3 Alive Sister 4 Alive Sister 5 Alive Sister 6 Alive Sister 7 Social History Tobacco Use Types Packs/Day Years Used Date Smoking Tobacco: Never Smokeless Tobacco: Never Personal Safety Answer Date Recorded Getting School Help Needed Not on file 04/23 Comments Unknown Sex and Gender Information Value Date Recorded Sex Assigned at Not on file Legal Sex Female 10:08 PM MORTAR MAN Gender Identity Female 03/30/2024 9:42 AM MORTAR MAN Sexual Orientation Choose not to disclose 2023 9:42 AM MORTAR MAN 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 Not on file Not on file No t on file Last Filed Vital Signs Vital Sign Reading Time Taken Comments Blood Pressure 138/82 09/06/2020 1:24 PM CDT Pulse 92 09/06/2020 1:24 PM CDT Temperature 36.9 C (98.4 F) 09/06/2020 1:24 PM CDT Respiratory Rate - - Oxygen Saturation - - Inhaled Oxygen Concentration - - Weight 81.6 kg (180 lb) 12/14/2020 12:32 PM CDT Height 152.4 cm (5') 12/14/2020 12:32 PM CDT Body Mass Index 35.15 12/14/2020 12:32 PM CDT Plan of Treatment Health Maintenance Due Date Last Done Comments Breast Cancer Screening-Mammogram 1950 Colon Cancer Screening-Colonoscopy 1950 Depression Screening 1950 Fall Risk Assessment 1950 Hepatitis C Screening 1950 Osteoporosis Screening-Bone Density Scan 1950 Hepatitis B Screening 1968 Zoster Vaccine (1 of 2) 2000 Well Visit 65+ 10/16/2015 Pneumococcal vaccine 65+ (2 of 2 - PCV) 01/25/2017 0 01/26/2016 Influenza Vaccine (#1) 2024 02/08/2020, 2017 DTaP/Tdap/Td Vaccine (3 - Td or Tdap) 03/29/203005/2019, 04/04/2009 Insurance MEDICARE MEDICARE Care Teams Cement Finisher Helper Relationship Specialty Start Date End Date Ryan Kelly PA [address] [place] [address] PCP - General Physician Spool Salvager 08/04/20
== END 2025-03-23 12:53 | disposition home or self-care (01) ==
LOC: ANHNEURO 12:54
PROVIDERS: Visit Provider Student in an Organized Health Care Education/Training Program
DX: G56.03 Carpal tunnel syndrome, bilateral upper limbs (principal); G56.23 Lesion of ulnar nerve, bilateral upper limbs; E11.9 Type 2 diabetes mellitus without complications
CPT/HCPCS: 95886; 95911